=== PATIENT | male | born 1990 | race Two or more races ===

== ENCOUNTER 2016-09-15 20:02 | Emergency (ER) | payer OTHER ==
[~2016-09-15] VITALS: Ht 167.6 cm; Wt 58.0 kg
[~2016-09-15 20:02] MED LIST: ERYT1OIN6 LEFT EYE
[2016-09-15 20:24] VITALS: Ht 167.6 cm; Wt 58.0 kg
[2016-09-15] MEDS ORDERED: GABA300C16 PO (21:17)
[2016-09-15] MEDS ORDERED: IBUP-1542 PO (21:17)
--- NOTE | 2016-09-15 21:31 | ERD ---
ER Documentation Chief Complaint Date/Time DATE: 09/15/16 TIME: 21:22 Chief Complaint tingling to the left arms x 1 week HPI 26-year-old male presents here in emergency department for complaints of numbness and tingling in the left arm on and off for one. Patient denies any swallowing. Patient denies any fever or chills. Patient denies any neck pain. Patient denies neck injury. Patient denies any numbness or tingling in other parts of the body. Patient did not take any medication for pain. At this time, patient had the tingling sensation. Patient is complaining of pain 6/10 sharp pain, that take medications to help with symptoms. ROS All systems reviewed and are negative except as per history of present illness. Medications Home Meds Active Scripts Gabapentin* (Gabapentin*) 300 Mg Capsule, 300 MG PO QHS, #30 CAP Prov:MARCUS BHATTI MEDICAL BILLING ASSISTANT 09/15/16 Ibuprofen* (Motrin*) 600 Mg Tab, 600 MG PO Q6H Y for PAIN AND OR ELEVATED TEMP, #30 TAB Prov:MARCUS BHATTI MEDICAL BILLING ASSISTANT 09/15/16 Erythromycin (Erythromycin Opth) 3.5 Gm Oint..gm., 1 APPLIC LEFT EYE TID, #1 TUB Prov:MERRITT DE LEON 09/27/15 Allergies Allergies: Coded Allergies: No Known Allergy (Unverified , 09/15/16) PMhx/Soc Medical and Surgical Hx: pt denies Medical Hx, pt denies Surgical Hx History of Surgery: No Anesthesia Reaction: No Hx Neurological Disorder: No Hx Respiratory Disorders: No Hx Cardiac Disorders: No Hx Psychiatric Problems: No Hx Miscellaneous Medical Probl: No Hx Alcohol Use: No Hx Substance Use: No Hx Tobacco Use: No Smoking Status: Light tobacco smoker FmHx Family History: No coronary disease, No diabetes, No other Physical Exam Vitals Vital Signs Date Time Temp Pulse Resp B/P Pulse Ox O2 Delivery O2 Flow Rate FiO2 09/15/16 20:24 98.2 70 18 142/92 99 Physical Exam GENERAL: The patient is well developed and appropriate for usual state of health, in no apparent distress. CHEST: Clear to auscultation bilaterally. There are no rales, wheezes or rhonchi. HEART: Regular rate and rhythm. No murmurs, clicks, rubs or gallops. No S3 or S4. ABDOMEN: Soft, nontender and nondistended. Good bowel sounds. No rebound or guarding. No gross peritonitis. No gross organomegaly or masses. No Pisano sign or McBurney point tenderness. BACK: No midline or flank tenderness. EXTREMITIES: Equal pulses bilaterally. There is no peripheral clubbing, cyanosis or edema. No focal swelling or erythema. Full range of motion. Grossly neurovascularly intact. NEURO: Alert and oriented. Cranial nerves 2-12 intact. Motor strength in all 4 extremities with 5/5 strength. Sensation grossly intact. Normal speech and gait. SKIN: There is no apparent rash or petechia. The skin is warm and dry. HEMATOLOGIC AND LYMPHATIC: There is no evidence of excessive bruising or lymphedema. No gross cervical, axillary, or inguinal lymphadenopathy. Procedures/MDM Medical decision making: Patient symptoms are nonspecific at this time, possible neuropathic pain, on and off, no symptoms of neurovascular compromise, CT scan of the neck area was considered, I discussed this with the patient, nonemergent procedure at this time, patient opts to see his primary care doctor with medication and see if it will help with symptoms. no symptoms of neurovascular compromise. Patient was given for gabapentin, ibuprofen, is advised to follow-up with primary doctor in 2-3 days for reevaluation of symptoms. Patient was advised to return to emergency department for any worsening symptoms. Departure Diagnosis: Primary Impression: Paresthesia Condition: Stable Patient Instructions: Neuropathy, Peripheral MARCUS BHATTI NP Sep 15, 2016 21:31
== END 2016-09-15 22:05 | disposition home or self-care (01) ==
LOC: FTE 20:02
DX: R20.9 Unspecified disturbances of skin sensation (principal); F17.210 Nicotine dependence, cigarettes, uncomplicated
CPT/HCPCS: 99283

== ENCOUNTER 2017-12-03 12:30 | Emergency (ER) | END 2017-12-03 13:03 | disposition home or self-care (01) ==

== ENCOUNTER 2017-12-23 19:41 | Emergency (ER) | END 2017-12-23 23:35 | disposition home or self-care (01) ==

== ENCOUNTER 2018-02-12 23:28 | Emergency (ER) | END 2018-02-13 04:00 | disposition left against medical advice (07) ==